=== PATIENT | male | born 1950 | race Caucasian/White ===

== ENCOUNTER → 2021-06-22 | Day surgery (SDC) | payer MEDICARE, BC ==
[~2021-06-22] MED LIST: Ketamine 200 MG/20 ML MDV ONE; Lactated Ringers 1,000 ML IV SCH; Lidocaine 2% 5 ML SDV ONE; Propofol 200 MG/20 ML SDV ONE; fentaNYL 100 MCG/2 ML SDV ONE
[2021-06-22 09:31] VITALS: BP 121/68; PULSE 50
--- NOTE | 2021-06-22 09:47 | OR ---
DATE OF OPERATION: 06/22/2021 PREOPERATIVE DIAGNOSIS: DYSPHAGIA. POSTOPERATIVE DIAGNOSIS: DYSPHAGIA. SURGEON: Kiko Lakhani MD PROCEDURE: ESOPHAGOGASTRODUODENOSCOPY WITH BIOPSY OF HYPOPHARYNX. ANESTHESIA: MAC. SPECIMEN: Pharyngeal biopsy. INDICATIONS: This 70-year-old male who was eating food last week and feels like something is still caught in the back of his throat. He does not have any dysphagia to solid foods or regurgitation. He has history of multiple cancers. DESCRIPTION OF PROCEDURE: After adequate preparation, a gastroscope was inserted into the esophagus. This was passed down to the distal esophagus. He does not show any evidence of stricture, hiatal hernia, or esophagitis. The distal esophagus was normal. Scope was advanced into the stomach. Both forward and retroflexed views were done and were normal. The scope was advanced through the pylorus and the 1st and 2nd part of the duodenum were also normal. On withdrawal of the scope, the arytenoid cartilages in the larynx seemed to be quite edematous and swollen, and he had some redness in the posterior pharynx that probably could be some chronic irritation. However, there are no masses. He does in the upper esophagus have a slight suggestion of a wide-mouth diverticula. This is certainly not a pouch that would get any food caught in it, and I do not find any reason why he would have the sensation that he has something stuck in the upper esophagus or throat. I did biopsy an area of the hypopharynx that was reddened, otherwise normal. Air was suctioned from the stomach and the scope removed. BPB/MODL /[id number]
== END ==
LOC: CC.SDS 07:20
PROVIDERS: ATTEND Surgery
DX: R13.10 Dysphagia, unspecified (principal); T18.108A Unspecified foreign body in esophagus causing other injury, initial encounter; G89.29 Other chronic pain; K21.9 Gastro-esophageal reflux disease without esophagitis; E66.9 Obesity, unspecified; Z79.899 Other long term (current) drug therapy; Z90.49 Acquired absence of other specified parts of digestive tract; Z98.890 Other specified postprocedural states
CPT/HCPCS: 00731; 43239; 88305; J2704; J3010; J7120